=== PATIENT | female | born 1960 | race Caucasian/White ===

== ENCOUNTER → 2017-01-18 | Emergency (ER) | payer MEDICAID | END | disposition left against medical advice (07) | LOC: D.ER 20:53 | DX: M54.2 Cervicalgia (principal) ==

== ENCOUNTER → 2017-07-11 09:56 | Outpatient (CLI) | payer OTHER | END | disposition home or self-care (01) | LOC: D.RAD 09:56 | DX: Z02.71 Encounter for disability determination (principal) ==

== ENCOUNTER 2017-10-27 14:52 | Emergency (ER) | payer MEDICAID | END 2017-10-27 19:00 | disposition home or self-care (01) | LOC: D.ER 14:52 | DX: S93.601A Unspecified sprain of right foot, initial encounter (principal); X58.XXXA Exposure to other specified factors, initial encounter; Y93.89 Activity, other specified; Y92.019 Unspecified place in single-family (private) house as the place of occurrence of the external cause ==